=== PATIENT | female | born 1955 | race Caucasian/White ===

== ENCOUNTER 2019-08-06 01:01 | Inpatient (IN) ==
[2019-08-06] MEDS ORDERED: Naloxone 0.4 MG/ML INJ IVP PRN ×2 (03:53→13:21)
[2019-08-06] MEDS ORDERED: Ondansetron 4 MG/2 ML VIAL IVP PRN ×2 (03:53→13:21)
[2019-08-06] MEDS ORDERED: 0.9 % Sodium Chloride 1,000 ML IVC SCH (04:00)
[2019-08-06] MEDS ORDERED: D5% in Water 1,000 ML IVC PRN ×2 (04:12→13:21)
[2019-08-06] MEDS ORDERED: Dextrose Gel 15 GM/37.5 ML TUBE PO PRN ×4 (04:12→13:21)
[2019-08-06] MEDS ORDERED: *HR* Dextrose 50 % in Water (Syg) 50 ML SYRINGE IVP PRN ×2 (04:12→13:21)
[2019-08-06] MEDS ORDERED: Zoledronic Acid (Zometa) 4 MG in 0.9 % Sodium Chloride 100 ML IV ONE (04:15)
[2019-08-06] MEDS: Insulin LISPRO 300 UNITS/3 ML VIAL SQ SCH ×4 (05:23→21:29)
[2019-08-06 05:26] LABS: Basophils % 0.4 %; Eosinophils % 0.2 %; Hematocrit 40.7 % (35.3-44.9); Immature Granulocytes % 0.2 % (0-4); Lymphocytes # 1.6 K/mcL (0.6-4.6); Lymphocytes % 18.7 %; Mean Corpuscular HGB Conc 31.9 g/dL (31.6-35.5); Mean Corpuscular Hemoglobin 28.1 pg (28.0-33.3); Mean Corpuscular Volume 87.9 fL (83.0-100.0); Mean Platelet Volume 9.6 fL (9.4-12.4); Monocytes # 0.8 K/mcL (0.0-1.3); Monocytes % 9.8 %; Platelet Count 241 K/mcL (140-400); Red Blood Count 4.63 M/mcL (3.82-4.97); Red Cell Distribution Width 14.7 % (11.5-14.5); Segmented Neutrophils % 70.7 %; White Blood Count 8.5 K/mcL (4.3-11.1)
[2019-08-06] MEDS ORDERED: Calcitonin-Salmon, Synthetic 400 UNIT/2 ML VIAL IM SCH (05:30)
[2019-08-06 05:31] LABS: Activated Partial Thrombo Time 27.9 Seconds (26.0-36.0)
[2019-08-06 05:50] LABS: Alanine Aminotransferase 15 Units/L (7-52); Albumin 3.9 g/dL (3.5-5.7); Albumin/Globulin Ratio 1.4 (1.1-2.2); Alkaline Phosphatase 58 Units/L (34-104); Aspartate Amino Transferase 20 Units/L (13-39); BUN/Creatinine Ratio 17 (6-26); Bilirubin,Total 0.4 mg/dL (0.3-1.0); Blood Urea Nitrogen 28 mg/dL (8-23); Calcium 15.8 mg/dL (8.6-10.3); Carbon Dioxide 35 mEq/L (23-29); Chloride 100 mEq/L (98-107); Globulin 2.7 g/dL (2.4-3.5); Glucose 125 mg/dL (70-105); Magnesium 1.8 mg/dL (1.6-2.6); Osmolality,Calculated 295 (280-300); Phosphorous 3.3 mg/dL (2.7-4.5); Potassium 3.8 mEq/L (3.5-5.1); Sodium 139 mEq/L (136-145); Total Protein 6.6 g/dL (6.4-8.9); Troponin I < 0.03 ng/mL (< 0.04); eGFR For African Americans 37 (> 60); eGFR For Non-African Americans 31 (> 60)
[2019-08-06] MEDS ORDERED: ZOLEDRONIC ACID IVPB ONE (06:15)
[2019-08-06] MEDS: Ringers Solution, Lactated 1,000 ML IVC SCH ×4 (08:49→21:28)
[2019-08-06 10:38] LABS: VBG Ionized Calcium 1.83 mmol/L (1.15-1.35)
[2019-08-06 10:56] LABS: Calcium 14.4 mg/dL (8.6-10.3); Magnesium 1.6 mg/dL (1.6-2.6); Phosphorous 1.9 mg/dL (2.7-4.5); Potassium 3.4 mEq/L (3.5-5.1)
[2019-08-06] MEDS ORDERED: Potassium Phosphate 44 MEQ in 0.9 % Sodium Chloride 250 ML IVPB ONE ×2 (12:08→13:21)
[2019-08-06] MEDS ORDERED: Potassium Chloride Elixir 20 MEQ/15 ML UDC PO ONE ×2 (12:09→13:21)
[2019-08-06 15:14] LABS: Bilirubin,Urine Negative (Negative); Blood,Urine Large (Negative); Clarity,Urine Turbid (Clear); Color,Urine Yellow (Yellow); Glucose,Urine (UA) Normal (Normal); Ketones,Urine Negative (Negative); Leukocyte Esterase,Urine Small (Negative); Nitrite,Urine Negative (Negative); PH,Urine 7.5 pH Units (5.0-8.0); Protein,Urine 30 mg/dL (Neg-Trace); Specific Gravity,Urine 1.012 (1.010-1.025); Urobilinogen,Urine Normal (Normal)
[2019-08-06 15:17] LABS: Bacteria,Urine None Seen per hpf (None-Few); Hyaline Casts,Urine None Seen per lpf (None-Few); RBC,Urine TNTC per hpf (0-3); Squamous Epithelial Cell,Urine Many per lpf (None-Few)
[2019-08-06 15:29] LABS: VBG Ionized Calcium 1.82 mmol/L (1.15-1.35)
[2019-08-06 15:47] LABS: Calcium 13.8 mg/dL (8.6-10.3); Magnesium 1.6 mg/dL (1.6-2.6); Phosphorous 2.9 mg/dL (2.7-4.5)
[2019-08-06] MEDS: Calcitonin-Salmon, Synthetic 400 UNIT/2 ML VIAL IM SCH (17:35)
[2019-08-06] MEDS ORDERED: Insulin LISPRO 300 UNITS/3 ML VIAL SQ SCH (18:00)
[2019-08-06] MEDS: *HR* Heparin 5,000 UNIT/ML VIAL SQ SCH (21:27)
[2019-08-06 23:32] LABS: VBG Ionized Calcium 1.62 mmol/L (1.15-1.35)
[2019-08-06 23:48] LABS: Calcium 12.3 mg/dL (8.6-10.3); Magnesium 1.6 mg/dL (1.6-2.6); Phosphorous 3.4 mg/dL (2.7-4.5); Potassium 3.7 mEq/L (3.5-5.1)
[2019-08-07] MEDS: Ringers Solution, Lactated 1,000 ML IVC SCH ×5 (02:25→18:17)
[2019-08-07] MEDS: Calcitonin-Salmon, Synthetic 400 UNIT/2 ML VIAL IM SCH ×2 (06:07→18:32)
[2019-08-07] MEDS: *HR* Heparin 5,000 UNIT/ML VIAL SQ SCH ×3 (06:07→22:01)
[2019-08-07 07:24] LABS: VBG Ionized Calcium 1.61 mmol/L (1.15-1.35)
[2019-08-07] MEDS: Insulin LISPRO 300 UNITS/3 ML VIAL SQ SCH ×4 (07:30→22:10)
[2019-08-07 07:46] LABS: Calcium 11.6 mg/dL (8.6-10.3); Magnesium 1.5 mg/dL (1.6-2.6); Phosphorous 3.2 mg/dL (2.7-4.5); Potassium 3.7 mEq/L (3.5-5.1)
[2019-08-07 12:21] LABS: Thyroid Stimulating Hormone 1.665 mcIU/mL (0.340-5.600)
[2019-08-07] MEDS: predniSONE 20 MG TABLET PO SCH (15:55)
[2019-08-07] MEDS: Ipratropium/Albuterol Neb 3 ML IH SCH ×3 (17:02→23:52)
[2019-08-08] MEDS: Ringers Solution, Lactated 1,000 ML IVC SCH ×2 (01:11→17:31)
[2019-08-08] MEDS: Ipratropium/Albuterol Neb 3 ML IH SCH ×6 (04:22→23:57)
[2019-08-08 04:32] LABS: Hematocrit 34.3 % (35.3-44.9); Mean Corpuscular HGB Conc 32.4 g/dL (31.6-35.5); Mean Corpuscular Hemoglobin 27.5 pg (28.0-33.3); Mean Corpuscular Volume 84.9 fL (83.0-100.0); Mean Platelet Volume 10.1 fL (9.4-12.4); Platelet Count 183 K/mcL (140-400); Red Blood Count 4.04 M/mcL (3.82-4.97); Red Cell Distribution Width 14.6 % (11.5-14.5); White Blood Count 6.3 K/mcL (4.3-11.1)
[2019-08-08 04:34] LABS: VBG Ionized Calcium 1.45 mmol/L (1.15-1.35)
[2019-08-08 04:51] LABS: Calcium 10.7 mg/dL (8.6-10.3); Phosphorous 3.8 mg/dL (2.7-4.5); Potassium 3.8 mEq/L (3.5-5.1)
[2019-08-08] MEDS: Calcitonin-Salmon, Synthetic 400 UNIT/2 ML VIAL IM SCH (04:59)
[2019-08-08] MEDS: *HR* Heparin 5,000 UNIT/ML VIAL SQ SCH ×3 (05:02→20:53)
[2019-08-08 05:25] LABS: Hemoglobin 11.1 g/dL (11.5-15.4)
[2019-08-08] MEDS: Insulin LISPRO 300 UNITS/3 ML VIAL SQ SCH ×4 (08:48→20:55)
[2019-08-08] MEDS: Aspirin Enteric Coated 81 MG Tablet PO SCH (09:00)
[2019-08-08] MEDS: predniSONE 20 MG TABLET PO SCH (09:00)
[2019-08-08] MEDS: hydrALAZINE 25 MG TABLET PO SCH (15:50)
[2019-08-08 20:16] LABS: Bilirubin,Urine Negative (Negative); Blood,Urine Negative (Negative); Clarity,Urine Cloudy (Clear); Color,Urine Yellow (Yellow); Glucose,Urine (UA) 100 mg/dL (Normal); Ketones,Urine Negative (Negative); Leukocyte Esterase,Urine Large (Negative); Nitrite,Urine Negative (Negative); Protein,Urine Negative (Neg-Trace); Specific Gravity,Urine 1.013 (1.010-1.025); Urobilinogen,Urine Normal (Normal)
[2019-08-08 20:19] LABS: Bacteria,Urine Few per hpf (None-Few); Hyaline Casts,Urine None Seen per lpf (None-Few); RBC,Urine 0-3 per hpf (0-3); Squamous Epithelial Cell,Urine Many per lpf (None-Few); WBC,Urine 50-100 per hpf (0-3)
[2019-08-08 20:21] LABS: Sodium, Urine 41.4 mEq/L
[2019-08-08 22:17] LABS: Kappa Qnt Free Light Chains 37.55 mg/L (3.30-19.40); Lambda Qnt Free Light Chains 32.55 mg/L (5.71-26.30)
[2019-08-09] MEDS: hydrALAZINE 25 MG TABLET PO SCH ×4 (00:54→23:47)
[2019-08-09 03:35] LABS: % Iron Saturation 9 % (15-50); Iron 30 mcg/dL (50-170); Transferrin 239 mg/dL (203-362)
[2019-08-09 03:36] LABS: Hematocrit 33.4 % (35.3-44.9); Hemoglobin 10.9 g/dL (11.5-15.4); Mean Corpuscular HGB Conc 32.6 g/dL (31.6-35.5); Mean Corpuscular Hemoglobin 28.2 pg (28.0-33.3); Mean Corpuscular Volume 86.3 fL (83.0-100.0); Mean Platelet Volume 10.8 fL (9.4-12.4); Platelet Count 194 K/mcL (140-400); Red Blood Count 3.87 M/mcL (3.82-4.97); Red Cell Distribution Width 14.9 % (11.5-14.5)
[2019-08-09 03:37] LABS: Calcium 9.7 mg/dL (8.6-10.3); Phosphorous 2.8 mg/dL (2.7-4.5); Potassium 3.3 mEq/L (3.5-5.1)
[2019-08-09 03:38] LABS: White Blood Count 10.7 K/mcL (4.3-11.1)
[2019-08-09] MEDS: Ipratropium/Albuterol Neb 3 ML IH SCH ×5 (04:10→20:17)
[2019-08-09] MEDS: *HR* Heparin 5,000 UNIT/ML VIAL SQ SCH ×3 (06:03→20:33)
[2019-08-09] MEDS: Insulin LISPRO 300 UNITS/3 ML VIAL SQ SCH ×4 (07:52→20:36)
[2019-08-09] MEDS: amLODIPine 5 MG TABLET PO SCH (08:44)
[2019-08-09] MEDS: predniSONE 20 MG TABLET PO SCH (08:44)
[2019-08-09] MEDS: Aspirin Enteric Coated 81 MG Tablet PO SCH (08:46)
[2019-08-09] MEDS ORDERED: 0.9 % Sodium Chloride 250 ML IVC PRN (10:11)
[2019-08-09] MEDS ORDERED: 0.9 % Sodium Chloride 1,000 ML PRIME SCH (10:15)
[2019-08-09] MEDS: Iron Sucrose Complex 400 MG in 0.9 % Sodium Chloride 250 ML IVPB SCH (12:41)
[2019-08-09] MEDS ORDERED: *HR* Heparin 5,000 UNIT/ML VIAL ONE (12:52)
[2019-08-09] MEDS ORDERED: *HR* Heparin 10,000 UNIT/10 ML VIAL ONE (13:56)
[2019-08-09] MEDS ORDERED: *HR* Heparin 10,000 UNIT/10 ML VIAL IV PRN (14:33)
[2019-08-09 17:10] LABS: Hepatitis B Surface Antibody < 3.10 mIU/mL
[2019-08-09 17:19] LABS: Hepatitis B Surface Antigen Nonreactive (Nonreactive)
[2019-08-09] MEDS: carvediloL 25 MG TABLET PO SCH (17:43)
[2019-08-10] MEDS: Ipratropium/Albuterol Neb 3 ML IH SCH ×6 (00:14→20:11)
[2019-08-10 01:33] LABS: Hematocrit 33.4 % (35.3-44.9); Hemoglobin 11.1 g/dL (11.5-15.4); Mean Corpuscular HGB Conc 33.2 g/dL (31.6-35.5); Mean Corpuscular Hemoglobin 28.5 pg (28.0-33.3); Mean Corpuscular Volume 85.6 fL (83.0-100.0); Mean Platelet Volume 10.6 fL (9.4-12.4); Platelet Count 207 K/mcL (140-400); Red Cell Distribution Width 14.8 % (11.5-14.5); White Blood Count 12.2 K/mcL (4.3-11.1)
[2019-08-10 01:59] LABS: Calcium 8.9 mg/dL (8.6-10.3); Magnesium 1.8 mg/dL (1.6-2.6); Phosphorous 1.9 mg/dL (2.7-4.5); Potassium 4.3 mEq/L (3.5-5.1)
[2019-08-10] MEDS: *HR* Heparin 5,000 UNIT/ML VIAL SQ SCH ×3 (06:16→20:38)
[2019-08-10] MEDS ORDERED: 0.9 % Sodium Chloride 250 ML IVC PRN (06:58)
[2019-08-10] MEDS: predniSONE 20 MG TABLET PO SCH ×2 (07:47→20:37)
[2019-08-10] MEDS: Aspirin Enteric Coated 81 MG Tablet PO SCH (07:47)
[2019-08-10] MEDS: Iron Sucrose Complex 400 MG in 0.9 % Sodium Chloride 250 ML IVPB SCH (07:47)
[2019-08-10] MEDS: Insulin LISPRO 300 UNITS/3 ML VIAL SQ SCH ×4 (07:48→20:39)
[2019-08-10] MEDS ORDERED: *HR* Heparin 10,000 UNIT/10 ML VIAL IV PRN (09:36)
[2019-08-10 10:36] LABS: Alpha 2 Globulin (PEP) 0.79 g/dL (0.48-1.05); Beta Globulin (PEP) 0.76 g/dL (0.48-1.10); Beta Globulin (PEP) 0.78 g/dL (0.48-1.10)
[2019-08-10 10:48] LABS: IFE Reflexed NOT DONE
[2019-08-10] MEDS: hydrALAZINE 25 MG TABLET PO SCH ×3 (11:22→23:40)
[2019-08-10] MEDS: Sennosides/Docusate Sodium TABLET PO SCH ×2 (11:22→20:37)
[2019-08-10] MEDS: carvediloL 25 MG TABLET PO SCH ×2 (11:22→16:49)
[2019-08-10 12:40] LABS: Estimated Average Glucose 163 mg/dl
[2019-08-10] MEDS: Insulin DETEMIR 100 UNIT/ML X5UNITS SQ SCH (20:38)
[2019-08-11] MEDS: Ipratropium/Albuterol Neb 3 ML IH SCH ×6 (00:07→19:59)
[2019-08-11 04:59] LABS: Hematocrit 32.3 % (35.3-44.9); Hemoglobin 10.7 g/dL (11.5-15.4); Mean Corpuscular HGB Conc 33.1 g/dL (31.6-35.5); Mean Corpuscular Hemoglobin 28.4 pg (28.0-33.3); Mean Corpuscular Volume 85.7 fL (83.0-100.0); Mean Platelet Volume 10.6 fL (9.4-12.4); Platelet Count 202 K/mcL (140-400); Red Blood Count 3.77 M/mcL (3.82-4.97); Red Cell Distribution Width 14.8 % (11.5-14.5); White Blood Count 11.5 K/mcL (4.3-11.1)
[2019-08-11] MEDS: *HR* Heparin 5,000 UNIT/ML VIAL SQ SCH ×3 (05:02→21:56)
[2019-08-11 05:17] LABS: Albumin 3.3 g/dL (3.5-5.7); Albumin/Globulin Ratio 1.4 (1.1-2.2); Bilirubin,Total 0.3 mg/dL (0.3-1.0); Calcium 8.4 mg/dL (8.6-10.3); Globulin 2.3 g/dL (2.4-3.5); Magnesium 1.8 mg/dL (1.6-2.6); Potassium 3.7 mEq/L (3.5-5.1); Total Protein 5.6 g/dL (6.4-8.9)
[2019-08-11] MEDS ORDERED: 0.9 % Sodium Chloride 2,000 ML ONE (07:06)
[2019-08-11] MEDS: predniSONE 20 MG TABLET PO SCH ×2 (08:38→21:56)
[2019-08-11] MEDS: hydrALAZINE 25 MG TABLET PO SCH ×2 (08:38→17:02)
[2019-08-11] MEDS: carvediloL 25 MG TABLET PO SCH ×2 (08:38→17:01)
[2019-08-11] MEDS: Aspirin Enteric Coated 81 MG Tablet PO SCH (08:38)
[2019-08-11] MEDS: Sennosides/Docusate Sodium TABLET PO SCH ×2 (08:38→21:56)
[2019-08-11] MEDS: polyethylene glycoL 3350 17 GM POWD.PACK PO SCH (08:39)
[2019-08-11] MEDS: amLODIPine 5 MG TABLET PO SCH ×2 (08:39→18:47)
[2019-08-11] MEDS: Insulin LISPRO 300 UNITS/3 ML VIAL SQ SCH ×4 (08:39→21:47)
[2019-08-11] MEDS: Iron Sucrose Complex 400 MG in 0.9 % Sodium Chloride 250 ML IVPB SCH (08:59)
[2019-08-11 15:49] LABS: INR 1.1; Prothrombin Time 12.4 Seconds (9.4-12.1)
[2019-08-11] MEDS: Insulin DETEMIR 100 UNIT/ML X5UNITS SQ SCH (21:47)
[2019-08-12] MEDS: hydrALAZINE 25 MG TABLET PO SCH ×4 (00:03→23:57)
[2019-08-12] MEDS: Ipratropium/Albuterol Neb 3 ML IH SCH ×6 (00:31→19:48)
[2019-08-12 04:54] LABS: Hematocrit 33.6 % (35.3-44.9); Hemoglobin 10.8 g/dL (11.5-15.4); Mean Corpuscular HGB Conc 32.1 g/dL (31.6-35.5); Mean Corpuscular Hemoglobin 27.5 pg (28.0-33.3); Mean Corpuscular Volume 85.5 fL (83.0-100.0); Mean Platelet Volume 10.5 fL (9.4-12.4); Platelet Count 209 K/mcL (140-400); Red Blood Count 3.93 M/mcL (3.82-4.97); White Blood Count 13.9 K/mcL (4.3-11.1)
[2019-08-12 04:55] LABS: INR 1.1; Prothrombin Time 12.3 Seconds (9.4-12.1)
[2019-08-12 05:09] LABS: Calcium 8.1 mg/dL (8.6-10.3)
[2019-08-12] MEDS: *HR* Heparin 5,000 UNIT/ML VIAL SQ SCH ×3 (05:31→21:17)
[2019-08-12] MEDS: Insulin LISPRO 300 UNITS/3 ML VIAL SQ SCH ×4 (07:52→21:18)
[2019-08-12] MEDS: Sennosides/Docusate Sodium TABLET PO SCH ×2 (10:02→21:17)
[2019-08-12] MEDS: polyethylene glycoL 3350 17 GM POWD.PACK PO SCH (10:02)
[2019-08-12] MEDS: carvediloL 25 MG TABLET PO SCH ×2 (10:11→16:58)
[2019-08-12] MEDS: amLODIPine 5 MG TABLET PO SCH (10:11)
[2019-08-12] MEDS: predniSONE 20 MG TABLET PO SCH ×2 (10:11→21:17)
[2019-08-12] MEDS: Aspirin Enteric Coated 81 MG Tablet PO SCH (10:11)
[2019-08-12] MEDS ORDERED: 0.9 % Sodium Chloride 500 ML ONE (12:06)
[2019-08-12] MEDS ORDERED: *HR* FentaNYL (PF) 100 MCG/2 ML VIAL IVP ONE (12:11)
[2019-08-12] MEDS ORDERED: *HR* Midazolam HCl 2 MG/2 ML VIAL IVP ONE (12:11)
[2019-08-12] MEDS ORDERED: *HR* HYDROmorphone 2 MG/ML SYRINGE IVP ONE (13:56)
[2019-08-12] MEDS ORDERED: *HR* HYDROmorphone (PF) 1 MG/ML SYRINGE IVP ONE (14:15)
[2019-08-12] MEDS: Insulin DETEMIR 100 UNIT/ML X5UNITS SQ SCH (21:17)
[2019-08-13] MEDS: Ipratropium/Albuterol Neb 3 ML IH SCH ×7 (00:16→23:09)
[2019-08-13 04:25] LABS: Hematocrit 26.7 % (35.3-44.9); Mean Corpuscular HGB Conc 32.6 g/dL (31.6-35.5); Mean Corpuscular Hemoglobin 27.6 pg (28.0-33.3); Mean Corpuscular Volume 84.8 fL (83.0-100.0); Mean Platelet Volume 10.2 fL (9.4-12.4); Platelet Count 225 K/mcL (140-400); Red Blood Count 3.15 M/mcL (3.82-4.97); Red Cell Distribution Width 15.2 % (11.5-14.5); White Blood Count 17.1 K/mcL (4.3-11.1)
[2019-08-13 04:26] LABS: Hemoglobin 8.7 g/dL (11.5-15.4)
[2019-08-13 04:39] LABS: Calcium 7.8 mg/dL (8.6-10.3); Potassium 4.1 mEq/L (3.5-5.1)
[2019-08-13] MEDS: *HR* Heparin 5,000 UNIT/ML VIAL SQ SCH ×3 (05:52→22:25)
[2019-08-13] MEDS: Insulin LISPRO 300 UNITS/3 ML VIAL SQ SCH ×4 (07:00→22:26)
[2019-08-13] MEDS: hydrALAZINE 25 MG TABLET PO SCH ×3 (07:15→23:32)
[2019-08-13] MEDS: carvediloL 25 MG TABLET PO SCH ×2 (07:15→16:38)
[2019-08-13] MEDS: amLODIPine 5 MG TABLET PO SCH (07:16)
[2019-08-13] MEDS: Aspirin Enteric Coated 81 MG Tablet PO SCH (07:28)
[2019-08-13] MEDS: Sennosides/Docusate Sodium TABLET PO SCH ×2 (07:28→22:24)
[2019-08-13] MEDS: polyethylene glycoL 3350 17 GM POWD.PACK PO SCH (07:29)
[2019-08-13] MEDS: predniSONE 20 MG TABLET PO SCH ×2 (07:29→22:25)
[2019-08-13] MEDS ORDERED: *HR* Heparin 10,000 UNIT/10 ML VIAL IV PRN (08:14)
[2019-08-13] MEDS ORDERED: 0.9 % Sodium Chloride 250 ML IVC PRN (08:14)
[2019-08-13] MEDS ORDERED: 0.9 % Sodium Chloride 1,000 ML PRIME SCH (08:15)
[2019-08-13 11:54] LABS: Vitamin A (Retinol) 0.63 mg/L (0.30-1.20); Vitamin A (Retinyl-palmitate) <0.02 mg/L (0.00-0.10)
[2019-08-13] MEDS: Insulin DETEMIR 100 UNIT/ML X5UNITS SQ SCH (22:25)
[2019-08-13] MEDS: Famotidine 20 MG TABLET PO SCH (22:25)
[2019-08-14 04:03] LABS: Hemoglobin 7.8 g/dL (11.5-15.4); Mean Corpuscular HGB Conc 33.9 g/dL (31.6-35.5); Mean Corpuscular Hemoglobin 28.4 pg (28.0-33.3); Mean Corpuscular Volume 83.6 fL (83.0-100.0); Mean Platelet Volume 10.3 fL (9.4-12.4); Platelet Count 187 K/mcL (140-400); Red Blood Count 2.75 M/mcL (3.82-4.97); Red Cell Distribution Width 14.7 % (11.5-14.5); White Blood Count 15.7 K/mcL (4.3-11.1)
[2019-08-14] MEDS: Ipratropium/Albuterol Neb 3 ML IH SCH ×5 (04:15→20:27)
[2019-08-14 04:23] LABS: Calcium 7.4 mg/dL (8.6-10.3); Potassium 3.7 mEq/L (3.5-5.1)
[2019-08-14] MEDS: *HR* Heparin 5,000 UNIT/ML VIAL SQ SCH ×3 (07:31→21:55)
[2019-08-14] MEDS: Insulin LISPRO 300 UNITS/3 ML VIAL SQ SCH ×4 (09:21→21:56)
[2019-08-14] MEDS: amLODIPine 5 MG TABLET PO SCH (09:22)
[2019-08-14] MEDS: Sennosides/Docusate Sodium TABLET PO SCH ×2 (09:22→21:54)
[2019-08-14] MEDS: Aspirin Enteric Coated 81 MG Tablet PO SCH (09:22)
[2019-08-14] MEDS: predniSONE 20 MG TABLET PO SCH ×2 (09:22→21:54)
[2019-08-14] MEDS: polyethylene glycoL 3350 17 GM POWD.PACK PO SCH (09:22)
[2019-08-14] MEDS: Famotidine 20 MG TABLET PO SCH ×2 (09:22→21:54)
[2019-08-14] MEDS: hydrALAZINE 25 MG TABLET PO SCH ×3 (09:22→23:18)
[2019-08-14] MEDS: carvediloL 25 MG TABLET PO SCH ×2 (09:22→17:03)
[2019-08-14 14:39] LABS: % Iron Saturation 28 % (15-50); Iron 81 mcg/dL (50-170); Transferrin 210 mg/dL (203-362)
[2019-08-14 14:57] LABS: Ferritin 1185 ng/mL (10-120)
[2019-08-14 15:03] LABS: Folate 11.3 ng/mL (3.0-16.0)
[2019-08-14] MEDS: Insulin DETEMIR 100 UNIT/ML X5UNITS SQ SCH (21:55)
[2019-08-15] MEDS: Ipratropium/Albuterol Neb 3 ML IH SCH ×7 (00:36→23:29)
[2019-08-15 04:10] LABS: Hematocrit 20.8 % (35.3-44.9); Hemoglobin 6.9 g/dL (11.5-15.4); Mean Corpuscular HGB Conc 33.2 g/dL (31.6-35.5); Mean Corpuscular Hemoglobin 27.9 pg (28.0-33.3); Mean Corpuscular Volume 84.2 fL (83.0-100.0); Mean Platelet Volume 10.7 fL (9.4-12.4); Platelet Count 167 K/mcL (140-400); Red Blood Count 2.47 M/mcL (3.82-4.97); Red Cell Distribution Width 14.7 % (11.5-14.5); White Blood Count 15.4 K/mcL (4.3-11.1)
[2019-08-15 04:32] LABS: Calcium 7.4 mg/dL (8.6-10.3); Potassium 3.7 mEq/L (3.5-5.1)
[2019-08-15] MEDS: *HR* Heparin 5,000 UNIT/ML VIAL SQ SCH ×2 (05:19→11:57)
[2019-08-15] MEDS ORDERED: Isovue-370 500 ML BOTTLE IVP ONE (08:11)
[2019-08-15] MEDS: Insulin LISPRO 300 UNITS/3 ML VIAL SQ SCH ×4 (08:52→21:13)
[2019-08-15] MEDS: polyethylene glycoL 3350 17 GM POWD.PACK PO SCH (08:53)
[2019-08-15] MEDS: hydrALAZINE 25 MG TABLET PO SCH ×3 (08:53→23:56)
[2019-08-15] MEDS: Famotidine 20 MG TABLET PO SCH ×2 (08:53→21:15)
[2019-08-15] MEDS: amLODIPine 5 MG TABLET PO SCH (08:53)
[2019-08-15] MEDS: carvediloL 25 MG TABLET PO SCH ×2 (08:53→17:53)
[2019-08-15] MEDS: Aspirin Enteric Coated 81 MG Tablet PO SCH (08:53)
[2019-08-15] MEDS: Sennosides/Docusate Sodium TABLET PO SCH ×2 (08:53→21:14)
[2019-08-15] MEDS: predniSONE 20 MG TABLET PO SCH ×2 (08:53→21:14)
[2019-08-15] MEDS ORDERED: 0.9 % Sodium Chloride 250 ML ONE (14:59)
[2019-08-15] MEDS: Insulin DETEMIR 100 UNIT/ML X5UNITS SQ SCH (21:13)
[2019-08-16 02:46] LABS: Hematocrit 22.9 % (35.3-44.9); Hemoglobin 7.9 g/dL (11.5-15.4); Mean Corpuscular HGB Conc 34.5 g/dL (31.6-35.5); Mean Corpuscular Hemoglobin 29.4 pg (28.0-33.3); Mean Corpuscular Volume 85.1 fL (83.0-100.0); Mean Platelet Volume 10.7 fL (9.4-12.4); Platelet Count 178 K/mcL (140-400); Red Blood Count 2.69 M/mcL (3.82-4.97); Red Cell Distribution Width 14.7 % (11.5-14.5); White Blood Count 17.2 K/mcL (4.3-11.1)
[2019-08-16 03:08] LABS: Calcium 7.3 mg/dL (8.6-10.3); Potassium 3.8 mEq/L (3.5-5.1)
[2019-08-16] MEDS: Ipratropium/Albuterol Neb 3 ML IH SCH ×6 (03:42→23:40)
[2019-08-16] MEDS: Aspirin Enteric Coated 81 MG Tablet PO SCH (09:23)
[2019-08-16] MEDS: Sennosides/Docusate Sodium TABLET PO SCH ×2 (09:23→21:37)
[2019-08-16] MEDS: hydrALAZINE 25 MG TABLET PO SCH ×2 (09:23→17:43)
[2019-08-16] MEDS: predniSONE 20 MG TABLET PO SCH ×2 (09:24→21:36)
[2019-08-16] MEDS: amLODIPine 5 MG TABLET PO SCH (09:24)
[2019-08-16] MEDS: carvediloL 25 MG TABLET PO SCH ×2 (09:25→17:43)
[2019-08-16] MEDS: Famotidine 20 MG TABLET PO SCH ×2 (09:26→21:36)
[2019-08-16] MEDS: Insulin LISPRO 300 UNITS/3 ML VIAL SQ SCH ×4 (09:26→21:39)
[2019-08-16] MEDS: polyethylene glycoL 3350 17 GM POWD.PACK PO SCH (09:27)
[2019-08-16] MEDS: Insulin DETEMIR 100 UNIT/ML X5UNITS SQ SCH (21:41)
[2019-08-17] MEDS: hydrALAZINE 25 MG TABLET PO SCH ×2 (00:40→07:32)
[2019-08-17] MEDS: Ipratropium/Albuterol Neb 3 ML IH SCH ×2 (03:40→07:47)
[2019-08-17 04:46] LABS: Hematocrit 23.5 % (35.3-44.9); Mean Corpuscular Hemoglobin 28.7 pg (28.0-33.3); Mean Corpuscular Volume 84.2 fL (83.0-100.0); Mean Platelet Volume 10.4 fL (9.4-12.4); Platelet Count 195 K/mcL (140-400); Red Blood Count 2.79 M/mcL (3.82-4.97); Red Cell Distribution Width 15.1 % (11.5-14.5); White Blood Count 16.1 K/mcL (4.3-11.1)
[2019-08-17 05:07] LABS: Calcium 7.2 mg/dL (8.6-10.3); Potassium 4.1 mEq/L (3.5-5.1)
[2019-08-17] MEDS: carvediloL 25 MG TABLET PO SCH (07:32)
[2019-08-17] MEDS: amLODIPine 5 MG TABLET PO SCH (07:32)
[2019-08-17] MEDS: Sennosides/Docusate Sodium TABLET PO SCH (07:32)
[2019-08-17] MEDS: Aspirin Enteric Coated 81 MG Tablet PO SCH (07:32)
[2019-08-17] MEDS: predniSONE 20 MG TABLET PO SCH (07:32)
[2019-08-17] MEDS: polyethylene glycoL 3350 17 GM POWD.PACK PO SCH (07:32)
[2019-08-17] MEDS: Insulin LISPRO 300 UNITS/3 ML VIAL SQ SCH ×2 (07:33→11:46)
[2019-08-17] MEDS: Famotidine 20 MG TABLET PO SCH (07:33)
[2019-08-17] MEDS ORDERED: Ipratropium/Albuterol Neb 3 ML IH PRN (10:28)
[2019-08-17 11:15] VITALS: BP 125/74
== END 2019-08-17 16:15 | disposition home or self-care (01) | DRG 640 ==
LOC: ICNU → SUATTDRO 07:53 → 2ANU 13:10
PROVIDERS: ADMIT Student in an Organized Health Care Education/Training Program; ATTEND Pharmacist

== ENCOUNTER 2019-09-26 06:11 | Inpatient (IN) ==
[2019-09-26] MEDS ORDERED: Famotidine 20 MG/2 ML VIAL IVP ONE (06:20)
[2019-09-26] MEDS ORDERED: CeFAZolin Syr 2,000MG/20 ML 2,000 MG/20 ML SYRINGE IVPB ONE (06:27)
[2019-09-26] MEDS ORDERED: Ringers Solution, Lactated 1,000 ML IVC SCH (06:30)
[2019-09-26] MEDS ORDERED: *HR* Promethazine 25 MG/ML VIAL IVP PRN (06:39)
[2019-09-26] MEDS ORDERED: *HR* Labetalol 20 MG/4 ML SYRINGE IVP PRN (06:39)
[2019-09-26] MEDS ORDERED: *HR* HYDROmorphone (PF) 1 MG/ML SYRINGE IVP PRN (06:39)
[2019-09-26] MEDS ORDERED: Ondansetron 4 MG/2 ML VIAL IVP PRN (06:39)
[2019-09-26] MEDS ORDERED: *HR* Midazolam HCl 2 MG/2 ML VIAL ONE (07:11)
[2019-09-26] MEDS ORDERED: *HR* FentaNYL (PF) 100 MCG/2 ML VIAL ONE (07:11)
[2019-09-26] MEDS ORDERED: *HR* Propofol 200 MG/20 ML VIAL IVP ONE (07:11)
[2019-09-26] MEDS ORDERED: *HR* Succinylcholine 200 MG/10 ML VIAL IVP ONE (07:13)
[2019-09-26] MEDS ORDERED: *HR* Rocuronium Bromide 50 MG/5 ML VIAL ONE (07:13)
[2019-09-26] MEDS ORDERED: Lidocaine -MPF 2% 2 ML VIAL ONE (07:13)
[2019-09-26] MEDS ORDERED: EPHEDrine 50 MG/ML VIAL ONE (08:06)
[2019-09-26] MEDS ORDERED: *HR* PHENYLEPHRINE 1,000 MCG/10 ML SYRINGE IVP ONE (08:15)
[2019-09-26] MEDS ORDERED: *HR* Phenylephrine 10 MG/ML VIAL ONE (08:15)
[2019-09-26] MEDS ORDERED: Ondansetron 4 MG/2 ML VIAL ONE (08:16)
[2019-09-26] MEDS ORDERED: Dexamethasone 4 MG/ML VIAL ONE (08:16)
[2019-09-26] MEDS ORDERED: Acetaminophen IV 1,000 MG/100 ML BAG ONE (08:40)
[2019-09-26] MEDS ORDERED: Ketorolac 15 MG/ML VIAL IVP PRN (09:50)
[2019-09-26] MEDS ORDERED: Naloxone 0.4 MG/ML INJ IVP PRN (09:50)
[2019-09-26] MEDS: D5% in 0.45% NACL w KCl 20 MEQ/1,000 ML MLS IVC SCH ×2 (13:24→23:38)
[2019-09-26] MEDS: Acetaminophen IV 1,000 MG/100 ML BAG IVPB SCH ×3 (16:04→23:37)
[2019-09-26] MEDS: CeFAZolin 2 GM/120 ML BAG IVPB SCH ×2 (16:35→23:37)
[2019-09-27] MEDS: Acetaminophen IV 1,000 MG/100 ML BAG IVPB SCH ×2 (05:30→09:28)
[2019-09-27 07:18] VITALS: BP 159/77
== END 2019-09-27 10:33 | disposition home or self-care (01) | DRG 658 ==
LOC: SAMDAY 06:11 → 3ANU 12:05
PROVIDERS: ADMIT Urology; ATTEND Urology

== ENCOUNTER 2021-02-24 15:27 | Inpatient (IN) ==
[2021-02-24] MEDS ORDERED: *HR* OxyCODONE/APAP 5/325 TABLET PO PRN (17:39)
[2021-02-24] MEDS ORDERED: Dextrose Gel 15 GM/37.5 ML TUBE PO PRN ×3 (17:43→21:22)
[2021-02-24] MEDS ORDERED: D5% in Water 1,000 ML IVC PRN (17:43)
[2021-02-24] MEDS ORDERED: *HR* Dextrose 50 % in Water (Syg) 50 ML SYRINGE IVP PRN (17:43)
[2021-02-24] MEDS ORDERED: Ondansetron ODT 4 MG TAB.RAPDIS PO PRN (17:50)
[2021-02-24] MEDS ORDERED: cefTRIAXone 2,000 MG in Water for inj. (sterile) 10 ML IVP SCH (18:00)
[2021-02-24] MEDS: Insulin LISPRO 300 UNITS/3 ML VIAL SUBQ SCH ×2 (18:11→21:47)
[2021-02-24] MEDS: Azithromycin 500 MG in 0.9 % Sodium Chloride 250 ML IVPB SCH (18:12)
[2021-02-24] MEDS: cefTRIAXone 2,000 MG in 0.9 % Sodium Chloride Mini Bag 100 ML IVPB SCH (18:12)
[2021-02-24 18:44] LABS: Albumin 3.7 g/dL (3.5-5.7); Albumin/Globulin Ratio 1.2 (1.1-2.2); Bilirubin,Total 0.6 mg/dL (0.3-1.0); Calcium 8.8 mg/dL (8.6-10.3); Globulin 3.2 g/dL (2.4-3.5); Potassium 3.4 mEq/L (3.5-5.1); Total Protein 6.9 g/dL (6.4-8.9)
[2021-02-24] MEDS ORDERED: Isovue-370 500 ML BOTTLE IVP ONE (18:57)
[2021-02-24] MEDS: 0.9 % Sodium Chloride w KCl 20 MEQ/1,000 ML MLS IVC SCH (20:25)
[2021-02-24] MEDS: *HR* Enoxaparin 30 MG/0.3 ML SYRINGE SQ SCH (20:26)
[2021-02-24] MEDS: Ascorbic Acid 500 MG TABLET PO SCH (20:27)
[2021-02-24] MEDS: Ipratropium 1 PUFF INHALER IH SCH (20:32)
[2021-02-25] MEDS: Ipratropium 1 PUFF INHALER IH SCH ×6 (00:35→20:32)
[2021-02-25] MEDS: hydrALAZINE 25 MG TABLET PO SCH ×5 (01:52→23:54)
[2021-02-25 04:53] LABS: Hematocrit 38.2 % (35.3-44.9); Hemoglobin 12.4 g/dL (11.5-15.4); Mean Corpuscular HGB Conc 32.5 g/dL (31.6-35.5); Mean Corpuscular Hemoglobin 27.6 pg (28.0-33.3); Mean Corpuscular Volume 85.1 fL (83.0-100.0); Mean Platelet Volume 10.1 fL (9.4-12.4); Platelet Count 184 K/mcL (140-400); Red Blood Count 4.49 M/mcL (3.82-4.97); Red Cell Distribution Width 14.1 % (11.5-14.5); White Blood Count 4.7 K/mcL (4.3-11.1)
[2021-02-25 05:01] LABS: INR 1.1; Prothrombin Time 12.2 Seconds (9.4-12.1)
[2021-02-25 05:11] LABS: Alanine Aminotransferase 23 Units/L (7-52); Albumin 3.3 g/dL (3.5-5.7); Albumin/Globulin Ratio 1.2 (1.1-2.2); Alkaline Phosphatase 51 Units/L (34-104); Aspartate Amino Transferase 38 Units/L (13-39); BUN/Creatinine Ratio 26 (6-26); Bilirubin,Total 0.3 mg/dL (0.3-1.0); Blood Urea Nitrogen 33 mg/dL (8-23); Calcium 8.4 mg/dL (8.6-10.3); Carbon Dioxide 24 mEq/L (23-29); Chloride 103 mEq/L (98-107); Globulin 2.8 g/dL (2.4-3.5); Glucose 243 mg/dL (70-105); Lactate Dehydrogenase 317 Units/L (140-271); Osmolality,Calculated 299 (280-300); Potassium 3.2 mEq/L (3.5-5.1); Sodium 137 mEq/L (136-145); Total Protein 6.1 g/dL (6.4-8.9); eGFR For African Americans 50 (> 60); eGFR For Non-African Americans 42 (> 60)
[2021-02-25 05:31] LABS: Ferritin > 1500 ng/mL (10-120)
[2021-02-25] MEDS: Insulin LISPRO 300 UNITS/3 ML VIAL SUBQ SCH ×4 (08:30→20:50)
[2021-02-25] MEDS: Zinc Sulfate 220 MG CAPSULE PO SCH (08:31)
[2021-02-25] MEDS: Aspirin Enteric Coated 81 MG Tablet PO SCH (08:31)
[2021-02-25] MEDS: *HR* Enoxaparin 30 MG/0.3 ML SYRINGE SQ SCH ×2 (08:31→20:51)
[2021-02-25] MEDS: amLODIPine 5 MG TABLET PO SCH (08:31)
[2021-02-25] MEDS: Ascorbic Acid 500 MG TABLET PO SCH ×2 (08:31→20:50)
[2021-02-25] MEDS: carvediloL 25 MG TABLET PO SCH ×2 (08:31→17:04)
[2021-02-25] MEDS: 0.9 % Sodium Chloride w KCl 20 MEQ/1,000 ML MLS IVC SCH (08:35)
[2021-02-25] MEDS: dexAMETHasone 4 MG TABLET PO SCH (13:40)
[2021-02-25] MEDS: cefTRIAXone 2,000 MG in 0.9 % Sodium Chloride Mini Bag 100 ML IVPB SCH (17:04)
[2021-02-25] MEDS: Azithromycin 500 MG in 0.9 % Sodium Chloride 250 ML IVPB SCH (18:16)
[2021-02-26] MEDS: Ipratropium 1 PUFF INHALER IH SCH ×4 (03:56→20:48)
[2021-02-26 06:22] LABS: Hematocrit 37.8 % (35.3-44.9); Hemoglobin 12.7 g/dL (11.5-15.4); Mean Corpuscular HGB Conc 33.6 g/dL (31.6-35.5); Mean Corpuscular Hemoglobin 28.9 pg (28.0-33.3); Mean Corpuscular Volume 85.9 fL (83.0-100.0); Mean Platelet Volume 10.5 fL (9.4-12.4); Platelet Count 270 K/mcL (140-400); Red Cell Distribution Width 14.4 % (11.5-14.5)
[2021-02-26 06:27] LABS: White Blood Count 12.1 K/mcL (4.3-11.1)
[2021-02-26 06:33] LABS: INR 1.1
[2021-02-26 06:41] LABS: Albumin 3.3 g/dL (3.5-5.7); Albumin/Globulin Ratio 1.2 (1.1-2.2); Bilirubin,Total 0.3 mg/dL (0.3-1.0); Calcium 8.4 mg/dL (8.6-10.3); Globulin 2.8 g/dL (2.4-3.5); Total Protein 6.1 g/dL (6.4-8.9)
[2021-02-26] MEDS: Insulin LISPRO 300 UNITS/3 ML VIAL SUBQ SCH ×4 (07:49→22:27)
[2021-02-26] MEDS: Ascorbic Acid 500 MG TABLET PO SCH ×2 (07:50→22:26)
[2021-02-26] MEDS: hydrALAZINE 25 MG TABLET PO SCH ×2 (07:50→15:04)
[2021-02-26] MEDS: carvediloL 25 MG TABLET PO SCH ×2 (07:50→17:11)
[2021-02-26] MEDS: Aspirin Enteric Coated 81 MG Tablet PO SCH (07:50)
[2021-02-26] MEDS: amLODIPine 5 MG TABLET PO SCH (07:50)
[2021-02-26] MEDS: *HR* Enoxaparin 30 MG/0.3 ML SYRINGE SQ SCH ×2 (07:50→22:26)
[2021-02-26] MEDS: dexAMETHasone 4 MG TABLET PO SCH (07:50)
[2021-02-26] MEDS: Zinc Sulfate 220 MG CAPSULE PO SCH (07:50)
[2021-02-26] MEDS: cefTRIAXone 2,000 MG in 0.9 % Sodium Chloride Mini Bag 100 ML IVPB SCH (17:10)
[2021-02-26] MEDS: Azithromycin 500 MG in 0.9 % Sodium Chloride 250 ML IVPB SCH (17:52)
[2021-02-27] MEDS: Ipratropium 1 PUFF INHALER IH SCH ×4 (04:08→23:00)
[2021-02-27 05:35] LABS: Hematocrit 36.7 % (35.3-44.9); Hemoglobin 12.2 g/dL (11.5-15.4); Mean Corpuscular HGB Conc 33.2 g/dL (31.6-35.5); Mean Corpuscular Hemoglobin 28.8 pg (28.0-33.3); Mean Corpuscular Volume 86.8 fL (83.0-100.0); Mean Platelet Volume 10.3 fL (9.4-12.4); Platelet Count 259 K/mcL (140-400); Red Blood Count 4.23 M/mcL (3.82-4.97); Red Cell Distribution Width 14.6 % (11.5-14.5); White Blood Count 9.2 K/mcL (4.3-11.1)
[2021-02-27 05:43] LABS: INR 1.1
[2021-02-27] MEDS: hydrALAZINE 25 MG TABLET PO SCH ×3 (05:52→16:38)
[2021-02-27 05:56] LABS: Alanine Aminotransferase 22 Units/L (7-52); Albumin/Globulin Ratio 1.1 (1.1-2.2); Alkaline Phosphatase 51 Units/L (34-104); Aspartate Amino Transferase 25 Units/L (13-39); BUN/Creatinine Ratio 25 (6-26); Bilirubin,Total 0.3 mg/dL (0.3-1.0); Blood Urea Nitrogen 25 mg/dL (8-23); Carbon Dioxide 22 mEq/L (23-29); Chloride 111 mEq/L (98-107); Globulin 2.7 g/dL (2.4-3.5); Glucose 189 mg/dL (70-105); Lactate Dehydrogenase 342 Units/L (140-271); Osmolality,Calculated 299 (280-300); Potassium 4.3 mEq/L (3.5-5.1); Sodium 140 mEq/L (136-145); Total Protein 5.7 g/dL (6.4-8.9); eGFR For African Americans > 60 (> 60); eGFR For Non-African Americans 56 (> 60)
[2021-02-27 06:11] LABS: Ferritin 1069 ng/mL (10-120)
[2021-02-27] MEDS: *HR* Enoxaparin 30 MG/0.3 ML SYRINGE SQ SCH ×2 (07:35→19:45)
[2021-02-27] MEDS: carvediloL 25 MG TABLET PO SCH ×2 (07:35→16:38)
[2021-02-27] MEDS: amLODIPine 5 MG TABLET PO SCH (07:35)
[2021-02-27] MEDS: Zinc Sulfate 220 MG CAPSULE PO SCH (07:35)
[2021-02-27] MEDS: Aspirin Enteric Coated 81 MG Tablet PO SCH (07:35)
[2021-02-27] MEDS: Ascorbic Acid 500 MG TABLET PO SCH ×2 (07:35→19:45)
[2021-02-27] MEDS: dexAMETHasone 4 MG TABLET PO SCH (07:35)
[2021-02-27] MEDS: Insulin LISPRO 300 UNITS/3 ML VIAL SUBQ SCH ×4 (07:40→19:44)
[2021-02-27] MEDS ORDERED: Remdesivir 200 MG in 0.9 % Sodium Chloride 100 ML IVPB ONE (14:49)
[2021-02-27] MEDS ORDERED: cefTRIAXone 2,000 MG in 0.9 % Sodium Chloride Mini Bag 100 ML IVPB SCH (16:30)
[2021-02-27] MEDS: Azithromycin 500 MG in 0.9 % Sodium Chloride 250 ML IVPB SCH (18:30)
[2021-02-28] MEDS: hydrALAZINE 25 MG TABLET PO SCH ×2 (00:38→08:38)
[2021-02-28 01:36] LABS: Hematocrit 36.9 % (35.3-44.9); Hemoglobin 11.8 g/dL (11.5-15.4); Mean Corpuscular Hemoglobin 28.4 pg (28.0-33.3); Mean Corpuscular Volume 88.7 fL (83.0-100.0); Platelet Count 254 K/mcL (140-400); Red Blood Count 4.16 M/mcL (3.82-4.97); Red Cell Distribution Width 14.8 % (11.5-14.5); White Blood Count 7.8 K/mcL (4.3-11.1)
[2021-02-28 01:46] LABS: INR 1.1; Prothrombin Time 12.5 Seconds (9.4-12.1)
[2021-02-28 02:00] LABS: Albumin 2.8 g/dL (3.5-5.7); Albumin/Globulin Ratio 1.1 (1.1-2.2); Bilirubin,Indirect 0.2 mg/dL (0.0-1.0); Bilirubin,Total 0.2 mg/dL (0.3-1.0); Globulin 2.6 g/dL (2.4-3.5); Total Protein 5.4 g/dL (6.4-8.9)
[2021-02-28 02:01] LABS: Alanine Aminotransferase 20 Units/L (7-52); Albumin 2.8 g/dL (3.5-5.7); Albumin/Globulin Ratio 1.1 (1.1-2.2); Alkaline Phosphatase 48 Units/L (34-104); Aspartate Amino Transferase 21 Units/L (13-39); BUN/Creatinine Ratio 30 (6-26); Bilirubin,Total 0.2 mg/dL (0.3-1.0); Blood Urea Nitrogen 26 mg/dL (8-23); Calcium 7.8 mg/dL (8.6-10.3); Carbon Dioxide 21 mEq/L (23-29); Chloride 112 mEq/L (98-107); Globulin 2.6 g/dL (2.4-3.5); Glucose 222 mg/dL (70-105); Osmolality,Calculated 302 (280-300); Potassium 4.4 mEq/L (3.5-5.1); Sodium 140 mEq/L (136-145); Total Protein 5.4 g/dL (6.4-8.9); eGFR For African Americans > 60 (> 60); eGFR For Non-African Americans > 60 (> 60)
[2021-02-28] MEDS: Ipratropium 1 PUFF INHALER IH SCH ×4 (04:14→23:03)
[2021-02-28] MEDS: Insulin LISPRO 300 UNITS/3 ML VIAL SUBQ SCH ×4 (08:37→20:40)
[2021-02-28] MEDS: amLODIPine 5 MG TABLET PO SCH (08:38)
[2021-02-28] MEDS: Aspirin Enteric Coated 81 MG Tablet PO SCH (08:38)
[2021-02-28] MEDS: *HR* Enoxaparin 30 MG/0.3 ML SYRINGE SQ SCH (08:38)
[2021-02-28] MEDS: carvediloL 25 MG TABLET PO SCH ×2 (08:38→16:21)
[2021-02-28] MEDS: dexAMETHasone 4 MG TABLET PO SCH (08:38)
[2021-02-28] MEDS: Zinc Sulfate 220 MG CAPSULE PO SCH (08:39)
[2021-02-28] MEDS: Ascorbic Acid 500 MG TABLET PO SCH ×2 (08:39→20:27)
[2021-02-28] MEDS ORDERED: Remdesivir 100 MG in 0.9 % Sodium Chloride 100 ML IVPB SCH (15:00)
[2021-02-28] MEDS: Insulin DETEMIR 100 UNIT/ML X5UNITS SUBQ SCH (16:21)
[2021-03-01 02:11] LABS: Hematocrit 36.5 % (35.3-44.9); Hemoglobin 11.9 g/dL (11.5-15.4); Mean Corpuscular HGB Conc 32.6 g/dL (31.6-35.5); Mean Corpuscular Volume 85.9 fL (83.0-100.0); Platelet Count 270 K/mcL (140-400); Red Blood Count 4.25 M/mcL (3.82-4.97); Red Cell Distribution Width 14.8 % (11.5-14.5); White Blood Count 7.7 K/mcL (4.3-11.1)
[2021-03-01 02:18] LABS: Albumin 2.9 g/dL (3.5-5.7); Albumin/Globulin Ratio 1.2 (1.1-2.2); Bilirubin,Direct 0.1 mg/dL (0.0-0.2); Bilirubin,Indirect 0.1 mg/dL (0.0-1.0); Bilirubin,Total 0.2 mg/dL (0.3-1.0); Globulin 2.5 g/dL (2.4-3.5); Total Protein 5.4 g/dL (6.4-8.9)
[2021-03-01 02:20] LABS: Alanine Aminotransferase 20 Units/L (7-52); Albumin 2.9 g/dL (3.5-5.7); Albumin/Globulin Ratio 1.2 (1.1-2.2); Alkaline Phosphatase 57 Units/L (34-104); Aspartate Amino Transferase 17 Units/L (13-39); BUN/Creatinine Ratio 31 (6-26); Bilirubin,Total 0.3 mg/dL (0.3-1.0); Blood Urea Nitrogen 27 mg/dL (8-23); Carbon Dioxide 21 mEq/L (23-29); Chloride 112 mEq/L (98-107); Globulin 2.5 g/dL (2.4-3.5); Glucose 301 mg/dL (70-105); Osmolality,Calculated 304 (280-300); Potassium 4.5 mEq/L (3.5-5.1); Sodium 139 mEq/L (136-145); Total Protein 5.4 g/dL (6.4-8.9); eGFR For African Americans > 60 (> 60); eGFR For Non-African Americans > 60 (> 60)
[2021-03-01 03:28] LABS: Prothrombin Time 11.4 Seconds (9.4-12.1)
[2021-03-01] MEDS: Ipratropium 1 PUFF INHALER IH SCH ×2 (03:37→11:36)
[2021-03-01] MEDS ORDERED: *HR* Enoxaparin 40 MG/0.4 ML SYRINGE SQ SCH (09:00)
[2021-03-01] MEDS: dexAMETHasone 4 MG TABLET PO SCH (09:17)
[2021-03-01] MEDS: amLODIPine 5 MG TABLET PO SCH (09:17)
[2021-03-01] MEDS: Aspirin Enteric Coated 81 MG Tablet PO SCH (09:17)
[2021-03-01] MEDS: carvediloL 25 MG TABLET PO SCH (09:17)
[2021-03-01] MEDS: Zinc Sulfate 220 MG CAPSULE PO SCH (09:17)
[2021-03-01] MEDS: Ascorbic Acid 500 MG TABLET PO SCH (09:17)
[2021-03-01] MEDS: Insulin LISPRO 300 UNITS/3 ML VIAL SUBQ SCH ×2 (09:18→12:10)
[2021-03-01] MEDS: Insulin DETEMIR 100 UNIT/ML X5UNITS SUBQ SCH (09:19)
[2021-03-01 14:51] VITALS: BP 113/77; PULSE 65; TEMP 97.7; O2SAT 97
== END 2021-03-01 15:47 | disposition home health service (06) | DRG 177 ==
LOC: 3BNU → SUATTDRO 16:39
PROVIDERS: ADMIT Hospitalist; ATTEND Internal Medicine